=== PATIENT | female | born 1995 | race Caucasian/White ===

== ENCOUNTER 2021-10-30 21:30 | Outpatient (CLI) | payer OTHER ==
[~2021-10-30] VITALS: Ht 165.1 cm; Wt 95.3 kg
[~2021-10-30 21:30] MED LIST: HEPARIN SODIUM,PORCINE 1,000 UNITS/ML VIAL IVP ONE
[2021-10-30 23:00] VITALS: BP 146/82
[2021-10-31 00:11] LABS: GLUCOMETER DEV NAME(LOC) POC.BV
[2021-10-31 03:04] VITALS: BP 146/82
[2021-10-31] MEDS ORDERED: HALOPERIDOL LACTATE 5 MG/ML VIAL ONE (08:59)
[2021-10-31] MEDS ORDERED: HALOPERIDOL 5 MG TABLET PO ONE (09:30)
[2021-10-31] MEDS ORDERED: LORazepam 1 MG TABLET PO PRN (09:30)
[2021-10-31] MEDS ORDERED: HALOPERIDOL LACTATE 5 MG/ML VIAL IM ONE (09:30)
[2021-10-31 10:30] VITALS: BP 145/103
[2021-10-31 20:51] VITALS: BP 145/79
[2021-10-31] MEDS ORDERED: RisperiDONE 2 MG TABLET PO SCH (21:00)
[2021-11-01 08:38] VITALS: BP 104/74
== END 2021-11-01 10:00 | disposition home or self-care (01) ==
LOC: CSU 21:30
PROVIDERS: ATTEND Psychiatry & Neurology Geriatric Psychiatry
DX: F31.2 Bipolar disorder, current episode manic severe with psychotic features (principal)
CPT/HCPCS: 36415; 87426; 90792; J1630; J1644